=== PATIENT | male | born 1995 | race American Indian/Alaskan Native ===

== ENCOUNTER 2017-09-05 16:47 | Emergency (ER) | payer SELFPAY ==
[2017-09-05] MEDS ORDERED: CLEOCIN 900 MG/50 mL 900 MG/50 ML BAG IV ONE (19:22)
[2017-09-05] MEDS ORDERED: TORADOL IV ONE (19:22)
[2017-09-05] MEDS ORDERED: DECADRON IV ONE (19:22)
[2017-09-05] MEDS ORDERED: NACL 0.9% 1000 ML 1,000 ML IV ONE (19:24)
--- NOTE | 2017-09-05 19:25 | Emergency Department Report ---
ED ENT HPI - General Chief complaint: Sore Throat Stated complaint: STREAP THROAT Time Seen by Provider: 09/05/17 19:02 Source: patient, family Mode of arrival: Ambulatory Limitations: No Limitations - History of Present Illness Initial comments: This is a 22-year-old male patient presented to the emergency room accompanied a sore throat again that he had strep. He reports fever and chills and said that he is having problems swallowing and when asked he admits to drooling. He said pain is 10 out of 10 and achy. Worse with swallowing. No medication taken. No alleviating then factor but exacerbated by swallowing. He states that he has difficulty swallowing. Denies any coughing, wheezing or stridor. Denies any chest pain. Denies any nasal congestion or runny nose. Denies any headache. He said his neck on both sides hurts. No previous medical history. MD complaint: sore throat, difficulty swallowing Onset/Timin -: days(s) Location: throat Severity: severe Severity scale (0 -10): 10 Quality: aching Consistency: constant Improves with: none Worsens with: swallowing, eating Context- Dental: other Associated Symptoms: pain with swallowing, sore throat. denies: cough, gum swelling, toothache, tinnitus, hearing loss, discharge from ear, rhinorrhea - Related Data Home Medications Medication Instructions Recorded Confirmed Last Taken No Known Home Medications [No 09/05/17 09/05/17 Unknown Reported Home Medications] Allergies Allergy/AdvReac Type Severity Reaction Status Date / Time No Known Allergies Allergy Unverified 09/05/17 16:58 ED Dental HPI - General Chief complaint: Sore Throat Stated complaint: STREAP THROAT Time Seen by Provider: 09/05/17 19:02 Source: patient Mode of arrival: Ambulatory Limitations: No Limitations - Related Data Home Medications Medication Instructions Recorded Confirmed Last Taken No Known Home Medications [No 09/05/17 09/05/17 Unknown Reported Home Medications] Allergies Allergy/AdvReac Type Severity Reaction Status Date / Time No Known Allergies Allergy Unverified 09/05/17 16:58 ED Review of Systems ROS: Stated complaint: STREAP THROAT Other details as noted in HPI Constitutional: denies: chills, fever Eyes: denies: eye pain, eye discharge, vision change ENT: denies: ear pain, throat pain, epistaxis Respiratory: denies: cough, shortness of breath, SOB with exertion, SOB at rest , stridor, wheezing Cardiovascular: denies: chest pain, palpitations, dyspnea on exertion, edema, syncope Gastrointestinal: denies: abdominal pain, nausea, vomiting, diarrhea, constipation, hematemesis, hematochezia Musculoskeletal: denies: back pain, joint swelling, arthralgia, myalgia Skin: denies: rash, lesions Neurological: denies: headache, weakness, paresthesias, abnormal gait, vertigo ED Past Medical Hx - Past Medical History Previous Medical History?: No - Surgical History Past Surgical History?: No - Family History Family history: no significant - Social History Smoking Status: Light Tobacco Smoker Substance Use Type: Marijuana - Medications Home Medications: Home Medications Medication Instructions Recorded Confirmed Last Taken Type No Known Home Medications [No 09/05/17 09/05/17 Unknown History Reported Home Medications] ED Physical Exam - General Limitations: No Limitations General appearance: alert, in no apparent distress - Head Head exam: Present: atraumatic, normocephalic, normal inspection - Eye Eye exam: Present: normal appearance, PERRL, EOMI. Absent: periorbital swelling , periorbital tenderness Pupils: Present: normal accommodation - ENT ENT exam: Present: mucous membranes moist, TM's normal bilaterally, normal external ear exam, other (bilateral nasal mucosa normal exam.). Absent: normal exam, normal orophraynx - Expanded ENT Exam Expanded Ear exam: Present: normal external inspection ( Bilateral frontal and maxillary sinuses nontender to palpate) Mouth exam: Present: drooling, muffled voice, tongue normal. Absent: normal external inspection, trismus, tongue elevation, laceration Teeth exam: Present: normal inspection. Absent: gingival enlargement Throat exam: Positive: tonsillar erythema, tonsillomegaly, R peritonsillar mass. Negative: normal inspection, tonsillar exudate - Neck Neck exam: Present: normal inspection, tenderness, full ROM, lymphadenopathy, other (no CVA tenderness). Absent: meningismus, thyromegaly - Expanded Neck Exam Expanded Neck exam: Present: tenderness (tended to palpate bilateral anterior neck). Absent: midline deformity, anterior neck swelling, tracheal deviation - Respiratory Respiratory exam: Present: normal lung sounds bilaterally. Absent: respiratory distress, chest wall tenderness - Cardiovascular Cardiovascular Exam: Present: regular rate, normal rhythm, normal heart sounds. Absent: systolic murmur, diastolic murmur - GI/Abdominal GI/Abdominal exam: Present: soft, normal bowel sounds. Absent: distended, tenderness, guarding, rebound, rigid, organomegaly, mass, bruit, pulsatile mass , hernia - Extremities Exam Extremities exam: Present: normal inspection, full ROM, normal capillary refill , other (No cce. + 2 pulses in all extremities, no neurovascular compromise). Absent: tenderness, pedal edema, joint swelling, calf tenderness - Back Exam Back exam: Present: normal inspection, full ROM, other (ambulates on any difficulties). Absent: tenderness, CVA tenderness (R), CVA tenderness (L), muscle spasm, paraspinal tenderness, vertebral tenderness, rash noted - Neurological Exam Neurological exam: Present: alert, oriented X3, normal gait, reflexes normal. Absent: motor sensory deficit - Psychiatric Psychiatric exam: Present: normal affect, normal mood - Skin Skin exam: Present: warm, dry, intact, normal color. Absent: rash ED Course Vital Signs 09/05/17 09/05/17 16:54 23:08 Temperature 99.3 F 98.3 F Pulse Rate 109 H 99 H Respiratory 18 18 Rate Blood Pressure 138/89 Blood Pressure 116/73 [Left] O2 Sat by Pulse 99 99 Oximetry - Reevaluation(s) Reevaluation #1: 09/05/17 20:38 Patient started on normal saline IV fluid, he was given Zofran 8 mg IV, Decadron 10 g IV and Toradol 30 mg IV. Strep test is negative CT scan of the neck results are pending. Patient says throat pain is better and is feeling a little better. Reevaluation #2: 09/05/17 21:09 Patient is stable, awaiting CT result. No pain at present. Reevaluation #3: 09/05/17 23:28 Patient still awaiting to be accepted to a center that has ENT service. He is stable. No acute distress at present. He is aware that were planning to transfer him to Center due to right peritonsillar abscess. - Consultations Consultation #1: 09/05/17 23:29 [facility] did not accept patient. I spoke with Dr. Burnham I spoke a shelby who had no ENT service at [facility] transfer center to call back regarding in transfer. Consultation #2: 09/05/17 23:42 Dr. Vegas at [facility] accepted patient to ED. ED Medical Decision Making - Lab Data Result diagrams: 09/05/17 19:54 09/05/17 19:54 Lab Results 09/05/17 09/05/17 09/05/17 Range/Units 19:54 19:54 Unknown WBC 10.8 (4.5-11.0) K/mm3 RBC 5.19 H (3.65-5.03) M/mm3 Hgb 16.6 H (11.8-15.2) gm/dl Hct 48.8 H (35.5-45.6) % MCV 94 (84-94) fl MCH 32 (28-32) pg MCHC 34 (32-34) % RDW 13.9 (13.2-15.2) % Plt Count 631 H (140-440) K/mm3 Lymph % (Auto) 12.4 L (13.4-35.0) % Tripp % (Auto) 7.4 H (0.0-7.3) % Eos % (Auto) 1.0 (0.0-4.3) % Baso % (Auto) 0.2 (0.0-1.8) % Lymph # 1.3 (1.2-5.4) K/mm3 Tripp # 0.8 (0.0-0.8) K/mm3 Eos # 0.1 (0.0-0.4) K/mm3 Baso # 0.0 (0.0-0.1) K/mm3 Seg Neutrophils % 79.0 H (40.0-70.0) % Seg Neutrophils # 8.6 H (1.8-7.7) K/mm3 Sodium 140 (137-145) mmol/L Potassium 4.3 (3.6-5.0) mmol/L Chloride 95.2 L (98-107) mmol/L Carbon Dioxide 27 (22-30) mmol/L Anion Gap 22 mmol/L BUN 7 L (9-20) mg/dL Creatinine 0.6 L (0.8-1.5) mg/dL Estimated GFR > 60 ml/min BUN/Creatinine Ratio 12 % Glucose 85 (75-100) mg/dL Calcium 10.0 (8.4-10.2) mg/dL Total Bilirubin 1.30 H (0.1-1.2) mg/dL AST 24 (5-40) units/L ALT 31 (7-56) units/L Alkaline Phosphatase 119 (35-129) units/L Total Protein 9.2 H (6.3-8.2) g/dL Albumin 5.2 H (3.9-5) g/dL Albumin/Globulin Ratio 1.3 % Group A Strep Rapid Negative (Negative) Blood culture sent Strep culture pending - Radiology Data Radiology results: report reviewed Patient had CT scan of the neck with IV contrast that was dictated by radiologist and report reviewed by myself. Please see detailed report below. Patient: GEORGIE KIMBALL MR#: [id number] : 1995 Acct:[id number] Age/Sex: 22 / M ADM Date: 09/05/17 Loc: ED Attending Dr: Ordering Physician: DAVID PRINCE Date of Service: 09/05/17 Procedure(s): CT neck w con Accession Number(s): [id number] cc: DAVID PRINCE FINAL REPORT EXAM: CT NECK W CON HISTORY: tonsilar swelling, drooling, fever TECHNIQUE: Helical CT was performed from the skull base to the thoracic inlet after the administration of iodinated intravenous contrast. PRIORS: None. FINDINGS: There is a capsulated low-attenuation area in the right pharyngeal tonsil measuring 2.4 cm consistent with an intratonsillar abscess. There is pharyngeal swelling from the oropharynx and extending into the hypopharynx to the level of the piriform sinuses. The left tonsil is mildly swollen. There is bilateral reactive cervical adenopathy. The parotid and submandibular glands appear normal. The thyroid appears normal. The vascular structures appear normal. The bones are unremarkable. IMPRESSION: 1. Bilateral tonsillitis. 2.4 cm in capsulated low-attenuation area in the right pharyngeal tonsil consistent with an intratonsillar 2. Reactive cervical adenopathy Transcribed By: CAROLEE Dictated By: LISA VILLEGAS MD Electronically Authenticated By: LISA VILLEGAS MD Signed Date/Time: 09/05/172102 DD/ 02 TD/TT: 09/05/172102 - Medical Decision Making This is a 22-year-old male presents to emergency room report that he has sore throat over the last 2 days is getting worse and he developed a fever with drooling and neck pain. He is here to be evaluated. Patient was evaluated by myself and exam showed bilateral enlarged tonsils which is erythema without exudate right larger than left. He has bilateral anterior chain enlarged lymph nodes, patient has fever and tachycardia. He has generally in. Patient developed hoarseness later in ER stay. Oral airways patent and uvula is midline with normal tongue and lip. Patient lungs are clear and he has no coughing or stridor. Normal neck exam except for enlarged lymph nodes. Patient had CBC done with normal white count, he has thrombocytopenia and bacterial shift to the left. CMP shows mostly normal values with some minor elevation or decrease. Bilirubin is elevated. Rapid strep negative and culture is pending. Blood cultures sent 2. He had CT scan of the neck with IV contrast which shows bilateral tonsillitis with 2.4 cm intratonsillar abscess. He also has reactive cervical lymph nodes. Patient was given IV fluid normal saline 1 L, Decadron 10 mg IV, Toradol 30 mg IV, and clindamycin and injured my milligrams IV. His pain is relieved and he had said that he had felt better but he developed hoarseness eventually. Lab report and CT scan reports along with diagnosis and treatment plan explained to patient. He voiced understanding. I discussed this case with Dr. Ballard who is the attending physician and patient to be transferred to a facility that has ENT service. I attempted to admit patient for hospitalist at this hospital but Dr. Taylor was called who is the ENT doctor and she said that she will be coming to this hospital the patient needs to go to another hospital. Patientvital signs remained stable and he is afebrile. Assessment/plan Bilateral tonsillitis-right greater than left. Verified and CT scan of the neck with IV contrast. Strep test negative and cultures are pending Intra-tonsillar abscess-, right verified by CT scan of the neck with IV contrast. Patient given Decadron 10 mg IM, Toradol 30 mg IV and clindamycin 900 mg IV. Prior to medication CBC, CMP and blood cultures were drawn and sent. Fever in adults-better after given Toradol. Tachycardia-better after given IV fluids. I spoke with Nellie at [place] [facility] and I also spoke with Dr. Burnham who is the ED attending physician for [facility] and Nellie called me back and told me that patient was accepted by Dr. Rashid at this [facility] emergency room. Patient to transfer via ambulance to [facility] emergency room. Dr. Ballard is aware of transfer and patient remained stable. Patient is aware of plans. He is stable. Vital signs are stable he is afebrile. Oral airways patent and uvula midline. Awaiting ambulance to transfer patient. Dr. Ballard to take over care of the patient until patient transport arrives to take him to [facility]. - Differential Diagnosis [employer], strep throat, tonsillitis, sinusitis, viral pharyngitis, Critical care attestation.: If time is entered above; I have spent that time in minutes in the direct care of this critically ill patient, excluding procedure time. ED Disposition Clinical Impression: Abscess, intratonsillar, Acute erythematous tonsillitis, Sore throat, Fever in adult, Tachycardia, Reactive cervical lymphadenopathy Disposition: [id number]/TX-[id number] ANOTHER TYPE HLTHCARE Is pt being admited?: No Does the pt Need Aspirin: No Condition: Stable Referrals: PRIMARY CARE, [Primary Care Provider] - 09/06/17
[2017-09-05 20:05] LABS: Basophils % (Auto) 0.2 % (0.0-1.8); Eosinophils # (Auto) 0.1 K/mm3 (0.0-0.4); Hematocrit 48.8 % (35.5-45.6); Hemoglobin 16.6 gm/dl (11.8-15.2); Lymphocytes # (Auto) 1.3 K/mm3 (1.2-5.4); Lymphocytes % (Auto) 12.4 % (13.4-35.0); Mean Corpuscular HGB Conc 34 % (32-34); Mean Corpuscular Hemoglobin 32 pg (28-32); Mean Corpuscular Volume 94 fl (84-94); Monocytes # (Auto) 0.8 K/mm3 (0.0-0.8); Monocytes % (Auto) 7.4 % (0.0-7.3); Platelet Count 631 K/mm3 (140-440); Red Blood Count 5.19 M/mm3 (3.65-5.03); Red Cell Distribution Width 13.9 % (13.2-15.2)
[2017-09-05 20:20] LABS: Alanine Aminotransferase 31 units/L (7-56); Albumin 5.2 g/dL (3.9-5); BUN/Creatinine Ratio 12; Blood Urea Nitrogen 7 mg/dL (9-20); Hemolysis Index 16
--- NOTE | 2017-09-05 21:10 | Cat Scan Report ---
FINAL REPORT EXAM: CT NECK W CON HISTORY: tonsilar swelling, drooling, fever TECHNIQUE: Helical CT was performed from the skull base to the thoracic inlet after the administration of iodinated intravenous contrast. PRIORS: None. FINDINGS: There is a capsulated low-attenuation area in the right pharyngeal tonsil measuring 2.4 cm consistent with an intratonsillar abscess. There is pharyngeal swelling from the oropharynx and extending into the hypopharynx to the level of the piriform sinuses. The left tonsil is mildly swollen. There is bilateral reactive cervical adenopathy. The parotid and submandibular glands appear normal. The thyroid appears normal. The vascular structures appear normal. The bones are unremarkable. IMPRESSION: 1. Bilateral tonsillitis. 2.4 cm in capsulated low-attenuation area in the right pharyngeal tonsil consistent with an intratonsillar 2. Reactive cervical adenopathy
[2017-09-05 23:09] VITALS: BP 116/73
== END 2017-09-06 01:00 | disposition other institution (70) ==
LOC: ED 16:47
DX: J36 Peritonsillar abscess (principal); J03.90 Acute tonsillitis, unspecified; R00.0 Tachycardia, unspecified; R59.0 Localized enlarged lymph nodes; F12.10 Cannabis abuse, uncomplicated; F17.200 Nicotine dependence, unspecified, uncomplicated
CPT/HCPCS: 36415; 70491; 80053; 85025; 87040; 87116; 87430; 96365; 96375; 99285; J1100; J1885; J7030; Q9967